=== PATIENT | female | born 1985 | race Caucasian/White ===

== ENCOUNTER 2024-03-05 10:54 | Outpatient (CLI) | payer MEDICAID | END 2024-03-05 23:59 | disposition home or self-care (01) | LOC: CARD DIAG 10:54 | PROVIDERS: ATTEND Student in an Organized Health Care Education/Training Program | DX: I37.1 Nonrheumatic pulmonary valve insufficiency (principal); R00.2 Palpitations | CPT/HCPCS: 93306 ==